=== PATIENT | female | born 1995 | race Caucasian/White ===

== ENCOUNTER 2018-08-22 14:30 | Emergency (ER) | payer MEDICAID, SELFPAY ==
[2018-08-22 14:31] VITALS: BP 126/76; PULSE 102; RESP 19; TEMP 36.1; O2SAT 99; BMI 26.6
--- NOTE | 2018-08-22 15:01 | US_ITS ---
STUDY: FIRST TRIMESTER OBSTETRICAL ULTRASOUND REASON FOR EXAM: Female, 22 years old. Cramping. Discharge. LMP: 3-19 TECHNIQUE: Transabdominal and Transvaginal PRIOR ULTRASOUND: None. FINDINGS: There is visualization of a single gestational sac in a normal intrauterine position. There is a visualized yolk sac. There is visualization of a live embryo. The crown-rump length (CRL) measures 2.49 cm, indicating an estimated gestational age (EGA) of 9 weeks, 2 days. There is demonstrated cardiac activity with a heart rate of 176 bpm. The uterus measures 9.8 x 8.6 x 5.7 cm. There is no demonstrated uterine fibroid. The cervix is closed. The right ovary measures 2.8 x 2.2 x 1.7 cm. There is no right ovarian cyst. There is no visualized right adnexal mass or complex lesion. The left ovary measures 2.9 x 1.9 x 1.8 cm. There is no left ovarian cyst. There is no visualized left adnexal mass or complex lesion. There is no fluid in the cul de sac. US/Transvaginal w/Preg US IMPRESSION: Single live intrauterine gestation, as described above. Electronically Signed: Jerod Walsh, at 18:20 EDT Tel , Service support ,
--- NOTE | 2018-08-22 15:03 | ED.VISSUMM ---
- ER Visit Summary Date of Service: 08/22/18 Chief Complaint: Pain History of Present Illness: The patient is a 22 F with suprapubic pain, gradually worsening over the past 3 days. The patient is 10 weeks and 3 days with her second . She has not had an ultrasound so far. Her pain has been associated with some spotting but she denies any other symptoms. She does not know her blood type. Physical Examination: Afebrile and vital signs unremarkable except for a heart rate of 102. Patient appears nontoxic and in no acute distress. Suprapubic area is tender to palpation. No guarding or rebound. Otherwise exam is unremarkable. Pelvic exam was deferred. Test Results: Labs, urine, blood type, ultrasound pending. Emergency Department Course and Treatment: Patient has not had any evaluation for this so far. She is having pain and spotting. Will check ultrasound, labs, urine. Will reassess. CBC and BMP unremarkable. Urinalysis normal. hCG 46,000. Blood type O+. Ultrasound showed a live intrauterine . Patient may use Tylenol for pain. Stay hydrated. Follow-up with her FELL CUTTER. Return for anything new or worsening. Treatment Plan: As above Disposition: Discharge Impression: 1. This note was generated with [employer] dictation software. It may contain incorrect words, spelling, and punctuation that were not noted in review of the chart prior to signing ED Disposition - Plan for ED Patient: Referrals: NOT,DEFINED [NON-STAFF] -
[2018-08-22 15:49] LABS: Absolute Lymphocyte Count 1.98 X10^3/ul (0.83-4.51); Absolute Neutrophil Count 3.9 X10^3/uL (2.0-7.7); Basophil# 0.01 X10^3/uL; Basophil% 0.2 % (0-1); Eosinophil# 0.08 X10^3/uL; Eosinophils% 1.2 % (0-5); Hematocrit 37.2 % (37-47); Hemoglobin 13.1 g/dl (12.0-15.0); Lymphocyte # 1.98 X10^3/ul (4.0); Lymphocyte % 30.8 % (19-41); Mean Corp Hgb Conc 35.2 g/gl (32-36); Mean Corpuscular Hgb 30.4 pg (27.0-32.0); Mean Corpuscular Volume 86.3 fL (81-99); Mean Platelet Vol. 10.9 fl (6.2-12.0); Monocyte% 7.8 % (0-10); Neutrophil # 3.86 X10^3/uL (2.7-7.7); Platelet Count 151 K/mm3 (150-450); RBC Distribution Width CV 12.9 % (11.6-14.6); RBC Distribution Width SD 41.2 fl (35.1-43.9); Red Blood Count 4.31 M/mm3 (4.2-5.4); White Blood Count 6.4 K/mm3 (4.4-11.0)
[2018-08-22 15:53] LABS: POSITIVE COUNT NO; POSITIVE DIFFERENTIAL NO; POSITIVE MORPHOLOGY NO
[2018-08-22 15:57] LABS: Anion Gap 6 (5-15); BUN 6 mg/dL (7-18); BUN/Creat Ratio 10.8 RATIO (10-20); Calcium,Total 8.5 mg/dL (8.5-10.1); Chloride 110 mmol/L (98-107); Creatinine, Serum 0.56 mg/dL (0.55-1.02); EST Glomerular Filtration Rate 146 mL/min (>60); Est Glom Filt Rate - Afr Amer 176 mL/min (>60); Estimated Creatinine Clearance 137.22 ml/min; Glucose 86 mg/dL (74-106); Potassium 3.7 mmol/L (3.5-5.1); Sodium Level 137 mmol/L (136-145)
[2018-08-22 15:59] LABS: Bacteria 0 SEEN /hpf (None Seen)
[2018-08-22 16:00] LABS: Color, Urine Yellow (Yellow); Glucose, Dipstick Normal (Normal); Ketone-Dipstick Negative (Negative); Leukocyte Esterase-Dipstick Negative /ul (Negative); Nitrite-Dipstick Negative (Negative); Occult Blood-Urine Negative /ul (Negative); Protein-Dipstick 15 mg/dl (Negative); Specific Gravity, Urine 1.015 (1.002-1.030); Urine Bilirubin Dipstick Negative (Negative); Urine Clarity Sl. Cloudy (Clear); Urine Urobilinogen 1 mg/dl (Normal); Urine pH 6.5 (5.0 - 8.0)
[2018-08-22 16:39] VITALS: BP 111/52; PULSE 63; RESP 16; O2SAT 98
[2018-08-22 16:41] LABS: Squamous Epithelial Cells - UA 0-5 SEEN /hpf (5-10)
[2018-08-22 16:42] LABS: Mucous, Urine 1+ /hpf (<or=2+)
[2018-08-22 16:43] LABS: White Blood Cells 0-5 SEEN /hpf (0-5)
[2018-08-22 16:44] LABS: Red Blood Cells-Urine 0-5 SEEN /hpf (0-5)
--- NOTE | 2018-08-22 18:46 | ED.DEP ---
ED Disposition - Plan for ED Patient: Instructions: ED Miscarriage Poss Referrals: Kayy Deleon MD [STAFF PHYSICIAN] -
[2018-08-22 18:56] VITALS: BP 105/59; PULSE 66; RESP 16; O2SAT 99
== END 2018-08-22 18:58 | disposition home or self-care (01) ==
LOC: ED 15:16
PROVIDERS: Emergency Provider Emergency Medicine
DX: O26.891 Other specified pregnancy related conditions, first trimester (principal); R10.30 Lower abdominal pain, unspecified; O99.331 Smoking (tobacco) complicating pregnancy, first trimester; Z3A.10 10 weeks gestation of pregnancy
CPT/HCPCS: 76817; 80048; 81001; 84702; 85025; 86900; 86901; 99284; A4216

== ENCOUNTER → 2018-09-05 | Outpatient (CLI) | payer MEDICAID, SELFPAY ==
[2018-09-05 14:41] VITALS: BMI 26.6
== END | disposition home or self-care (01) ==
LOC: PAVLAB 14:44
PROVIDERS: Visit Provider Nurse Practitioner Women's Health
DX: Z34.81 Encounter for supervision of other normal pregnancy, first trimester (principal); Z31.430 Encounter of female for testing for genetic disease carrier status for procreative management
CPT/HCPCS: 36415

== ENCOUNTER → 2018-10-31 11:15 | Outpatient (CLI) | payer MEDICAID, SELFPAY ==
[2018-10-31 11:10] VITALS: BMI 26.6
== END ==
PROVIDERS: Referring Provider Obstetrics & Gynecology; Visit Provider Obstetrics & Gynecology
DX: Z36.9 Encounter for antenatal screening, unspecified (principal); Z34.80 Encounter for supervision of other normal pregnancy, unspecified trimester
CPT/HCPCS: 36415; 87086; 87088

== ENCOUNTER → 2018-10-31 13:27 | Outpatient (CLI) | payer MEDICAID, SELFPAY ==
[2018-10-31 11:10] VITALS: BMI 26.6
== END ==
PROVIDERS: Referring Provider Obstetrics & Gynecology; Visit Provider Obstetrics & Gynecology
DX: Z34.90 Encounter for supervision of normal pregnancy, unspecified, unspecified trimester (principal)
CPT/HCPCS: 87086

== ENCOUNTER → 2018-12-27 | Outpatient (CLI) | payer MEDICAID, SELFPAY ==
[2018-12-27 11:33] VITALS: BMI 26.6
[2018-12-27 13:41] LABS: Absolute Neutrophil Count 6.4 X10^3/uL (2.0-7.7); Basophil# 0.02 X10^3/uL; Basophil% 0.2 % (0-1); Eosinophil# 0.06 X10^3/uL; Eosinophils% 0.7 % (0-5); Hematocrit 32.8 % (37-47); Hemoglobin 10.9 g/dL (12.0-15.0); Lymphocyte % 19.5 % (19-41); Mean Corp Hgb Conc 33.2 g/dL (32-36); Mean Corpuscular Hgb 31.1 pg (27.0-32.0); Mean Corpuscular Volume 93.7 fL (81-99); Mean Platelet Vol. 11.6 fl (6.2-12.0); Monocyte# 0.49 X10^3/uL; Monocyte% 5.6 % (0-10); NRBC Flagged by Analyzer 0 % (0-5); Neutrophil # 6.38 X10^3/uL (2.7-7.7); Neutrophil % 73.3 % (47-70); Platelet Count 166 K/mm3 (150-450); RBC Distribution Width CV 12.8 % (11.6-14.6); White Blood Count 8.7 K/mm3 (4.4-11.0)
[2018-12-27 14:04] LABS: Glucose Challenge Gest 1H 50g 112 mg/dL (70-140)
== END | disposition home or self-care (01) ==
LOC: LAB 11:58
PROVIDERS: Referring Provider Nurse Practitioner Women's Health; Visit Provider Nurse Practitioner Women's Health
DX: Z34.80 Encounter for supervision of other normal pregnancy, unspecified trimester (principal)
CPT/HCPCS: 36415; 82950; 85025

== ENCOUNTER 2019-01-22 15:41 | Outpatient (CLI) | payer MEDICAID, SELFPAY ==
[2019-01-10 11:10] VITALS: BMI 26.6
[2019-01-22 15:53] VITALS: BMI 28.1
[2019-01-22 16:49] LABS: ROM Internal Control Test YES-OK TO RESULT pt. (Internal QC); ROM Patient Test Negative (Negative); Record Kit Lot#, ROM+ J8255
--- NOTE | 2019-01-31 21:40 | OB.TRI.PN ---
Progress Notes Date of Service: 01/22/19 Progress Note: Patient presents for triage evaluation secondary to cramping FHT: 140s no regular ctx Assessment and plan: abdominal cramping, reassuring maternal and status patient discharged to home to follow-up as Toby problem list details for additional plan information. Laboratory Studies: Laboratory Tests 01/22/19 Range/Units 16:15 Vag Amniotic Fld Detect Negative (Negative) - Problem List (1) False labor Status: Acute Code Visit 52xxx-59xxx: 10804-50 non-stress test Interp
== END 2019-01-22 17:45 | disposition home or self-care (01) ==
LOC: WPOUT 15:43 → WP 15:43
PROVIDERS: Referring Provider Obstetrics & Gynecology; Visit Provider Obstetrics & Gynecology
DX: O47.9 False labor, unspecified (principal); Z3A.00 Weeks of gestation of pregnancy not specified
CPT/HCPCS: 59025; 59050; 84112; 99218; G0378

== ENCOUNTER 2019-02-09 11:18 | Outpatient (CLI) | payer MEDICAID, SELFPAY ==
[2019-02-09 10:39] VITALS: BMI 28.1
[2019-02-09 11:36] VITALS: BMI 28.3
--- NOTE | 2019-02-09 11:43 | US_ITS ---
STUDY: SECOND AND THIRD TRIMESTER OBSTETRICAL ULTRASOUND REASON FOR EXAM: Female, 23 years old . Growth. 4 chamber view. LMP: June 10, 2018. TECHNIQUE: Transabdominal TECHNICAL QUALITY: Adequate. PRIOR ULTRASOUND: August 22, 2018. FINDINGS: There is a single intrauterine fetus. The fetus is in a cephalic presentation. There is demonstrated cardiac activity with a heart rate of 146 bpm. There is a normal amniotic fluid volume. The largest amniotic fluid pocket measures 5.27 cm. The amniotic fluid index (GABRIEL) is 16.1 cm. The placenta is anterior in location and is not low lying. There are Grade 1 placental changes. The cervix measures 3.9 cm in length. The adnexal regions are not visualized. BIOMETRY: BPD: 8.26 cm: 33 weeks, 2 days HC: 30.98 cm: 34 weeks, 5 days AC: 30.46 cm: 34 weeks, 3 days FL: 6.41 cm: 33 weeks, 1 days CI: 81 FL/BPD: 78 FL/HC: FL/AC: 21 HC/AC: 1.02 age by current US: 34 weeks, 0 days. ANN by current US: March 23, 2019. Estimated weight: 2315 grams, +/- 33 grams, 46 %. age by prior US: 33 weeks, 5 days. ANN by prior US: March 25, 2019. Age by LMP: 34 weeks, 6 days. ANN by LMP: March 17, 2019. ANATOMY: Chest: Normal 4-chamber heart. The remainder of the visualized anatomy appears grossly normal.. US/OB Limited With Biometrics IMPRESSION: 1. Live single intrauterine at 34 weeks, 0 days. ANN is March 23, 2019. There is adequate interval growth since prior ultrasound. 2. EFW of 2315 g. 3. GABRIEL of 16.1 cm. 4. Anterior grade 1 placenta. 5. Vertex presentation. 6. Normal for chamber view of the heart. Electronically Signed: Larry Baca DO at 22:51 EDT Tel [phone], Service support ,
--- NOTE | 2019-02-12 22:32 | OB.TRI.PN_ITS ---
Progress Notes Date of Service: 02/09/19 Progress Note: threatened ptl FHT: 150 Moderate variability reactive no decelerations category I tracing [place]: irregular Contractions a/p threatened PTL dc home labor precautions no cervical change reactive nst Multi Select Codes - Urinary/Genital Urinary/Genital CPT Codes: 81115-91 non-stress test Interp
== END 2019-02-09 17:20 | disposition home or self-care (01) ==
LOC: WPOUT 11:24 → OBT 11:25
PROVIDERS: Referring Provider Obstetrics & Gynecology; Visit Provider Obstetrics & Gynecology
DX: O60.00 Preterm labor without delivery, unspecified trimester (principal); Z3A.00 Weeks of gestation of pregnancy not specified
CPT/HCPCS: 59050; 76816; 99218; G0378

== ENCOUNTER 2019-02-25 16:50 | Outpatient (CLI) | payer MEDICAID, SELFPAY ==
[2019-02-22 11:04] VITALS: BMI 28.3
[2019-02-25 17:18] VITALS: BMI 28.8
[2019-02-25] MEDS: Acetaminophen 500 MG Tablet 1000 MG PO (17:34)
[2019-02-25] MEDS: proMETHazine 25 MG Tablet 12.5 MG PO (17:34)
[2019-02-25 17:41] LABS: ROM Internal Control Test YES-OK TO RESULT pt. (Internal QC); ROM Patient Test Negative (Negative)
[2019-02-25] MEDS: Ondansetron 4 MG/2 ML Vial IV (18:33)
[2019-02-25] MEDS: Dextrose 5%-Lactated Ringers 1,000 ML 999 ML IV (18:33)
[2019-02-25 20:10] LABS: Protein:Creat Ratio 186 mg/g CRE (0-200)
[2019-02-25 20:32] VITALS: RESP 18
--- NOTE | 2019-02-26 04:00 | OB.TRI.PN_ITS ---
Progress Notes Date of Service: 02/25/19 Progress Note: Patient presents for triage evaluation secondary to nausea vomiting headache and visual changes likely secondary to viral gastroenteritis normal blood pressures FHT: 130-140n Moderate variability reactive no decelerations category I tracing [place]: no regular] Contractions Assessment and plan: Nausea vomiting reactive NST, reassuring maternal and status patient discharged to home to follow-up as scheduled. See problem list details for additional plan information. Laboratory Studies: Laboratory Tests 02/25/19 02/25/19 Range/Units 19:30 17:10 U Random Total Protein 55.0 H (<11.9) mg/dL Urine Creatinine 295.00 (NO RANGE EST.) mg/dL Protein/Creatinin Ratio 186 (0-200) mg/g CRE Vag Amniotic Fld Detect Negative (Negative) Code Visit 52xxx-59xxx: 64541-08 non-stress test Interp
== END 2019-02-25 20:32 | disposition home or self-care (01) ==
LOC: WPOUT 16:57 → WP 17:03
PROVIDERS: Referring Provider Obstetrics & Gynecology; Visit Provider Obstetrics & Gynecology
DX: O21.9 Vomiting of pregnancy, unspecified (principal); Z3A.00 Weeks of gestation of pregnancy not specified
CPT/HCPCS: 96361; 96374; 59025; 59050; 82570; 84112; 84156; 99218; G0378; J2405

== ENCOUNTER → 2019-03-01 13:13 | Outpatient (CLI) | payer MEDICAID, SELFPAY ==
[2019-03-01 11:14] VITALS: BMI 28.8
== END ==
PROVIDERS: Referring Provider Obstetrics & Gynecology; Visit Provider Obstetrics & Gynecology
DX: Z34.80 Encounter for supervision of other normal pregnancy, unspecified trimester (principal)
CPT/HCPCS: 87081

== ENCOUNTER → 2019-03-22 12:21 | Outpatient (CLI) | payer MEDICAID, SELFPAY ==
[2019-03-22 11:00] VITALS: BMI 28.8
--- NOTE | 2019-03-22 12:24 | US_ITS ---
STUDY: OBSTETRICAL ULTRASOUND - BIOPHYSICAL PROFILE REASON FOR EXAM: Female, 23 years old . Nonreactive stress test. LMP: June 17, 2018. PRIOR ULTRASOUND: Comparison is made with prior study dated February 09, 2019. TECHNIQUE: Transabdominal TECHNICAL QUALITY: Adequate. FINDINGS: There is a single intrauterine fetus. The fetus is in a cephalic presentation. There is demonstrated cardiac activity with a heart rate of 144 bpm. There is a normal amniotic fluid volume. The largest amniotic fluid pocket measures 4.0 cm. The amniotic fluid index (GABRIEL) is 11.2 cm. The placenta is anterior in location and is not low lying. There are Grade 2 placental changes. Age by LMP: 39 weeks, 5 days. ANN by LMP: March 24, 2019. age by prior US: 39 weeks, 4 days. ANN by prior US: March 23, 2019. BIOPHYSICAL PROFILE: Breathing Movements (FBM): 2 Gross Body Movements (GBM): 2 Tone (FT): 2 Amniotic Fluid Volume (AFV): 2 TOTAL SCORE: US/Biophysical Profile IMPRESSION: Normal biophysical profile of 11/16. Electronically Signed: Greg Arevalo, at 14:10 EST , Service support ,
== END ==
PROVIDERS: Referring Provider Obstetrics & Gynecology; Visit Provider Obstetrics & Gynecology
DX: O28.8 Other abnormal findings on antenatal screening of mother (principal); Z3A.00 Weeks of gestation of pregnancy not specified
CPT/HCPCS: 76818

== ENCOUNTER 2019-03-24 16:25 | Outpatient (CLI) | payer MEDICAID, SELFPAY ==
[2019-03-22 11:00] VITALS: BMI 28.8
[2019-03-24 16:45] VITALS: BMI 29.0
[2019-03-24] MEDS: Acetaminophen 500 MG Tablet 1000 MG PO (17:21)
--- NOTE | 2019-03-25 04:21 | OB.TRI.PN ---
Progress Notes Date of Service: 03/24/19 Progress Note: Patient presents for triage evaluation secondary to labor symptoms and decreased movement FHT: 150 moderate variability reactive no decelerations category I tracing [place]: Irregular contractions Assessment and plan: False labor and decreased movement reactive NST, reassuring maternal and status patient discharged to home to follow-up for induction of labor Tuesday. See problem list details for additional plan information. - Problem List (1) Decreased movement Status: Acute (2) False labor Status: Acute Multi Select Codes - Urinary/Genital Urinary/Genital CPT Codes: 41426-28 non-stress test Interp
== END 2019-03-24 17:25 | disposition home or self-care (01) ==
LOC: WPOUT 16:43 → WP 16:44
PROVIDERS: Visit Provider Obstetrics & Gynecology
DX: O36.8190 Decreased fetal movements, unspecified trimester, not applicable or unspecified (principal); O47.9 False labor, unspecified; Z3A.00 Weeks of gestation of pregnancy not specified
CPT/HCPCS: 59025; 59050; 99218; G0378

== ENCOUNTER 2019-03-26 06:58 | Inpatient (IN) | payer MEDICAID, SELFPAY ==
[2019-03-22 11:00] VITALS: BMI 28.8
[2019-03-26] MEDS: Lactated Ringers 1,000 ML 50 ML IV (07:30)
[2019-03-26 07:50] VITALS: BMI 29.0
[2019-03-26 07:59] LABS: Absolute Lymphocyte Count 1.09 X10^3/uL (0.83-4.51); Absolute Neutrophil Count 5.5 X10^3/uL (2.0-7.7); Basophil# 0.02 X10^3/uL; Basophil% 0.3 % (0-1); Eosinophil# 0.01 X10^3/uL; Eosinophils% 0.1 % (0-5); Hematocrit 29.3 % (37-47); Hemoglobin 9.4 g/dL (12.0-15.0); Lymphocyte # 1.09 X10^3/ul (4.0); Lymphocyte % 14.8 % (19-41); Mean Corp Hgb Conc 32.1 g/dL (32-36); Mean Corpuscular Hgb 28.2 pg (27.0-32.0); Monocyte# 0.65 X10^3/uL; Monocyte% 8.8 % (0-10); NRBC Flagged by Analyzer 0.8 % (0-5); Neutrophil # 5.49 X10^3/uL (2.7-7.7); Neutrophil % 74.5 % (47-70); Platelet Count 270 K/mm3 (150-450); RBC Distribution Width CV 14.7 % (11.6-14.6); RBC Distribution Width SD 47.1 fl (35.1-43.9); Red Blood Count 3.33 M/mm3 (4.2-5.4); White Blood Count 7.4 K/mm3 (4.4-11.0)
[2019-03-26] MEDS: Oxytocin 30 units/NS 500 ml 30 UNITS/500 ML IV.SOLN IV (08:05)
--- NOTE | 2019-03-26 08:13 | HP.PCM_ITS ---
- Problem List (1) Encounter for induction of labor Status: Acute (2) Anemia affecting Status: Acute Qualifiers: Comment: Start iron (3) Contraception management Status: Acute Qualifiers: Comment: Wants depoprovera post delivery, used before (4) Decreased movement Status: Acute (5) False labor Status: Acute (6) arrhythmia affecting , antepartum Status: Acute Comment: eval on l and d and growth us (7) Status: Acute Qualifiers: Comment: Panorama- low risk and horizon done: Negative 4 out of 4. afp neg. anatomy US normal (8) Social discord Status: Acute Comment: Does not want step aleyda Esposito in [place] (9) Supervision of other normal Status: Acute Comment: PRR ANN 03/24/19girl Nory Stapleton boyfrienchaya Stevenson JONI [address] Porter History and Physical Date of Admission: 03/26/19 Intake Vital Signs 03/22/19 Body Mass Index (BMI) 28.8 03/22/19 Height 5 ft 4 in 03/22/19 Weight: 172 lb 4 oz 03/22/19 Body Mass Index (BMI) 29.5 03/22/19 Blood Pressure 108/69 Intake Visit Reasons: 40 WEEK OB Pearl Stringer Required: No Is patient in pain?: No Allergies No Known Allergies Allergy (Verified 03/22/19 10:57) Medications Ranitidine HCl acid Spiritual Minister 150 mg PO BID 01/22/19 history Confirmed 03/22/19 Last Menstral Period: 06/10/18 Zika: Zika virus screening: Negative : No PFSH PFSH Surgical History S/P cholecystectomy (Resolved) Family History Mother Hypertension Social History Smoking Status: Current every day smoker alcohol intake: never substance use type: does not use caffeine: Yes what type of physical activity do you participate in: none seatbelt use: always do you feel safe at home: Yes additional social history: Zkdaikqja-Hopo-Jvrrgrba Contruction Patient is unemployed Pregancy History 2 Elective abortions Hx Para 1 Spontaneous abortions Hx # Term Pregnancies Ectopic pregnancies Hx # Pregnancies Multiple births # of living children 1 Past Pregnancies Del. Date Name GA/Weeks Outcome Route Bth Weight Gen Labor Lgth Anesthesia Del Locatn Provider FOB 10/18/17 Daya 39 live - full term 7lbs 3oz Female 9 hours epidural Jenniffer Graham Delivery Date: 10/18/17 On 09/05/18 @ 14:20 Rubina Hermosillo No issues during or delivery. HPI 40 WEEK OB: Details: SORAYA SHEPPARD is a 23 year old who presents for IOL secondary to decreased movment, term. OB Visit ANN Calculator Estimated Delivery Date Method Current WG Current Estimate 03/24/19 Ultrasound #1 39w 5d Other Estimates 03/17/19 LMP (Uncertain) 40w 5d Expected Delivery Route/Plan Labor Preferences- discussed possible routes of delivery and associated risks: special requests: labor support person: Graham pain management: epidural cut cord/dad catch: yes : yes PP control planned: depo Specific Issue/Plans flu vaccine: no tdap vaccine: given rhogam: na LARC form signed: declines movement and labor precautions reviewed. Problem list reviewed and updated with the most current plan of care details and appropriate orders placed. Relevant counseling for the gestational age provided. Continue routine care and follow up unless otherwise noted in visit notes/problem list details Initial Weight: Not Recorded Date EGA Weight BP Urine Prot Glucose FHR FuHt Pres Mov CTX Dilation Effaced St Visit Note 09/05/18 11w 3d 152 lb 6 oz 110/58 Negative Negative 168 NO VB, LOF. Nausea improved with phenergan. JONI Dr. Porter/Irma 10/02/18 15w 2d 151 lb 8 oz 124/74 Negative Negative 150 no vb cramping 10/31/18 19w 3d 151 lb 120/82 140 no vb has afp screen today needs us 11/28/18 23w 3d 155 lb 2 oz 116/60 Negative Negative 156 23 Active Doing well. No VB, LOF. 12/27/18 27w 4d 157 lb 2 oz 116/78 Negative Negative 154 27 Active absent No VB, LOF 01/10/19 29w 4d 160 lb 116/70 Negative Negative 140 30 no vb lof good fm no reg ctx 01/25/19 31w 5d 162 lb 124/70 Negative Negative 147 31 NO VB, LOF. Good FM. 02/09/19 33w 6d 165 lb 2 oz 110/68 145 no vb lof good fm no reg ctx. heart arrhythmia heard and recommend eval on l and d 02/14/19 34w 4d 167 lb 128/60 Negative Negative 140 35 no vb lof good fm no reg ctx 03/01/19 36w 5d 169 lb 124/60 Negative Negative 140 36 Cephalic no vb lof good fm no regular ctx 03/07/19 37w 4d 169 lb 106/58 Negative Negative 135 37 no vb lof good fm no reg ctx 03/15/19 38w 5d 167 lb 99/63 135 39 Cephalic no vb lof good fm irregular ctx Visit Notes Visit Date: 03/15/19 ??no vb lof good fm irregular ctx ??Kayy Deleon MD on 03/15/19 Visit Date: 03/07/19 ??no vb lof good fm no reg ctx ??Kayy Deleon MD on 03/07/19 Visit Date: 03/01/19 ??no vb lof good fm no regular ctx ??Kayy Deleon MD on 03/01/19 Visit Date: 02/14/19 ??no vb lof good fm no reg ctx ??Kayy Deleon MD on 02/14/19 Visit Date: 02/09/19 ??no vb lof good fm no reg ctx. heart arrhythmia heard and recommend eval on l and d ??Kayy Deleon MD on 02/09/19 Visit Date: 01/25/19 ??NO VB, LOF. Good FM. ??PETE Love on 01/25/19 Visit Date: 01/10/19 ??no vb lof good fm no reg ctx ??Kayy Deleon MD on 01/10/19 Visit Date: 12/27/18 ??No VB, LOF ??PETE Love on 12/27/18 Visit Date: 11/28/18 ??Doing well. No VB, LOF. ??PETE Love on 11/28/18 Visit Date: 10/31/18 ??no vb has afp screen today needs us ??Kayy Deleon MD on 10/31/18 Visit Date: 10/02/18 ??no vb cramping ??Kayy Deleon MD on 10/02/18 Visit Date: 09/05/18 ??NO VB, LOF. Nausea improved with phenergan. JONI Dr. Porter/Irma ??Carolin Heredia NP-C on 09/05/18 ACOG Second Trimester Second Trimester: Signs and Symptoms of Labor, Selecting a care provider and Reproductive Life Planning Third Trimester Third Trimester: Pain Management Plans, Labor support person(s), Immediate Larc, Movement Monitoring, Signs and Symptoms of Preeclampsia, Labor Signs and Infant Feeding Diagnostics Diagnostics Diagnostics Glucose 1 Hr 50 gm 112 mg/dL (70-140) 12/27/18 Hgb 10.9 g/dL (12.0-15.0) L 12/27/18 Hct 32.8 % (37-47) L 12/27/18 Details: HIV: Urine Culture: Sequential Screen: NIPT Screen: ROS: General: negative Biodiesel Operations Manager: see hpi GI: otherwise negative unless documented in hpi all other systems reviewed and negative PE: VSSAF General: alert oriented comfortable HEENT: no thyromegaly, lymphadenopathy CV: RRR Resp: nl inspiratory effort Abdn: soft gravid NTTP approrpriate GA Ext: minimal edema fht 140 cat I tracing Results [id number] Office Urine Glucose Negative Last Edit by Rubina Hermosillo on 03/22/19 11:05 Office Urine Protein Trace Last Edit by Rubina Hermosillo on 03/22/19 11:05 Assessment & Plan Problems 1. Social discord Z65.8 Does not want step aleyda Esposito in WP 2. arrhythmia affecting , antepartum O36.8390 eval on l and d and growth us 3. Encounter for other general counseling or advice on contraception Z30.09 Wants depoprovera post delivery, used before 4. Anemia affecting in second trimester O99.012 Start iron 5. 39 weeks gestation of Z3A.39 Panorama- low risk and horizon done: Negative 4 out of 4. afp neg. anatomy US normal 6. Supervision of other normal Z34.80 PRR ANN 03/24/19girl Nory tamayofriend Graham JONI [address] Porter Patient presents IOL, plan management for , pitocin/AROM . Pain management: Plans epidural. GBS negative. Management of any complications: Decreased movement, overall reassuring heart tracing and induction of labor today due to favorable cervix, 40 weeks I have reviewed the [facility] and made any clinically relevant updates. Orders Orders: POC Urinalysis 2 Dip (Clinic) Today Coding Diagnoses Social discord Z65.8 arrhythmia affecting , antepartum O36.8390 Encounter for other general counseling or advice on contraception Z30.09 ??Contraceptive encounter type: other general counseling and advice Anemia affecting in second trimester O99.012 ??Trimester: second trimester 39 weeks gestation of Z3A.39 ??Weeks of gestation: 39 weeks Supervision of other normal Z34.80 UPDATE- I have seen the patient and performed any clinically relevant updates to the history and physical exam. Kayy Deleon MD
[2019-03-26] MEDS: Lactated Ringers 500 ML 999 ML IV (08:33)
[2019-03-26] MEDS: fentaNYL-bupivacaine (epidural) 100 ML BAG EPIDURAL ×2 (09:38→13:58)
[2019-03-26] MEDS: Lactated Ringers 1,000 ML 200 ML IV (13:58)
[2019-03-26] MEDS: Acetaminophen 325 MG Tablet PO (14:27)
[2019-03-26] MEDS: Oxytocin 30 units/NS 500 ml 30 UNITS/500 ML IV.SOLN 334 UNITS IV (14:50)
--- NOTE | 2019-03-26 14:56 | OP.PCM_ITS ---
Problem List (1) Encounter for induction of labor Status: Acute (2) Anemia affecting Status: Acute Qualifiers: Comment: Start iron (3) Contraception management Status: Acute Qualifiers: Comment: Wants depoprovera post delivery, used before (4) Decreased movement Status: Acute (5) False labor Status: Acute (6) arrhythmia affecting , antepartum Status: Acute Comment: eval on l and d and growth us (7) Status: Acute Qualifiers: Comment: Panorama- low risk and horizon done: Negative 4 out of 4. afp neg. anatomy US normal (8) Social discord Status: Acute Comment: Does not want step aleyda Esposito in WP (9) Supervision of other normal Status: Acute Comment: PRR ANN 03/24/19girl Nory Stapleton boyfrienchaya Stevenson JONI [address] Porter Vaginal Delivery Maternal Presentation: Medically Indicated Induction iol 3 cm decreased movememnt Method of Induction: Pitocin Amniotic Membrane Rupture Type: Artificial Amniotic Fluid Description: Moderate meconium Final ANN: 03/25/19 Gestational age: 40 Weeks and 1 Days Date of Procedure: 03/26/19 Pre-Operative Diagnosis: iol dec fm Post-Operative Diagnosis: same Surgery/ Procedure Performed: Spontaneous Vaginal Delivery Type of Anesthesia: Epidural Description of Procedure: Patient began pushing and delivered the head in the ALESSIA presentation. The head was delivered atraumatically. The anterior and posterior shoulders delivered without complication followed by the rest of the and the was placed on the maternal abdomen. Delayed cord clamping was employed for approximately 60 seconds. Cord was clamped and cut and gentle traction was applied to the cord and the placenta delivered spontaneously immediately following it was noted to be intact with three-vessel cord. The perineum and vagina were inspected and noted to have no laceration. EBL was 200 cc. Patient and infant tolerated delivery well. Presentation: ALESSIA Placental Delivery Description: Spontaneous Placenta Disposition: [facility] Cord Vessel Description: 3 Vessels Cord Entanglement: None Estimated Blood Loss: 200 Infant A gender: Female Episiotomy Description: None Laceration: None Medications given after delivery: IV Pitocin Complications: None Multi Select Codes - Urinary/Genital Urinary/Genital CPT Codes: 71668 Vaginal Delivery+ Care([facility])
[2019-03-26] MEDS: Naproxen 250 MG Tablet 500 MG PO (19:12)
[2019-03-26 20:18] VITALS: BP 101/55; PULSE 100; RESP 18; TEMP 37
[2019-03-27 00:15] VITALS: BP 103/44; PULSE 87; RESP 18; TEMP 37.1
[2019-03-27] MEDS: Acetaminophen 500 MG Tablet 1000 MG PO (04:02)
[2019-03-27] MEDS: Senna/Docusate Sodium 1 Tablet PO (04:03)
[2019-03-27 04:05] VITALS: BP 99/48; PULSE 84; RESP 18; TEMP 36.6
--- NOTE | 2019-03-27 08:18 | PCM.PN.OB ---
Patient Problems: Active and Suspected Problems (Last Reviewed 03/22/19 @ 10:57 by Rubina Hermosillo) Encounter for induction of labor (Acute) Subjective: doing well no complaints pain controlled no CP SOB N V ambulating well tolerating po lochia moderate, going well - Physical Exam Vitals/I&O's: Vital Signs Temp Pulse Resp BP 97.8 F 84 18 99/48 L 03/27/19 04:05 03/27/19 04:05 03/27/19 04:05 03/27/19 04:05 Oxygen Delivery Method Room Air Weight: 169 lb Body Mass Index (BMI) 29.0 Intake and Output for Last 24 Hours 03/25/19 03/26/19 03/27/19 23:59 23:59 23:59 Intake Total 2141.82 / 2141.82 Output Total 750 / 750 Balance 1391.82 / 1391.82 General: Alert, Oriented x3 Abdomen: Soft, Non Tender, - - FF below U Laboratory Results 03/26/19 07:30: Blood Type O POSITIVE, Antibody Screen NEGATIVE Current Medications Acetaminophen (Tylenol) 1,000 mg PO Q8H PRN PRN PRN Reason: Pain Score 1-3/10 Last Admin: 03/27/19 04:02 Dose: 1,000 mg Documented by: Bisacodyl (Dulcolax) 10 mg RECTAL UD PRN PRN Reason: If no BM Dibucaine (Dibucaine) 1 applic TOPICAL TID PRN PRN; Protocol PRN Reason: Discomfort Hydrocortisone (Hytone) 1 applic TOPICAL TID PRN PRN; Protocol PRN Reason: Discomfort Methylergonovine Maleate (Methergine) 0.2 mg IM X1 PRN PRN Reason: Excess bleeding/uterine atony Naproxen (Naprosyn) 500 mg PO Q8H PRN PRN PRN Reason: Pain Score 1-3/10 Last Admin: 03/26/19 19:12 Dose: 500 mg Documented by: Ondansetron HCl (Zofran) 4 mg IV Q4H PRN PRN PRN Reason: Nausea Oxycodone HCl (Oxyir) 5 - 10 mg PO Q4H PRN PRN PRN Reason: Pain Score 4-10/10 Senna/Docusate Sodium (Senokot-S, Jocelyne-Colace) 1 - 2 tablet PO DAILY PRN PRN PRN Reason: Constipation Last Admin: 03/27/19 04:03 Dose: 2 tablet Documented by: Simethicone (Mylicon) 80 mg PO PCHS PRN PRN Reason: Indigestion/Stomach pain Sodium Chloride () 5 - 15 ml IV UD PRN PRN Reason: SALINE FLUSH Medical Necessity - Tobacco Use Smoking Status: Light Smoker (<10/day) Assessment/Plan All Active Problems (Last Reviewed 03/22/19 @ 10:57 by Rubina Hermosillo) Decreased movement (Acute) False labor (Acute) Encounter for induction of labor (Acute) Social discord (Acute) arrhythmia affecting , antepartum (Acute) Contraception management (Acute) Anemia affecting (Acute) (Acute) Supervision of other normal (Acute) False labor (Resolved) s/p PPD # 1 1. routine post delivery care 2. breast feeding- support given 3. rh positive 4. rubella immune 5. Wants depoprovera injection before discharge 6. home today
--- NOTE | 2019-03-27 08:19 | DCINST_ITS ---
Additional Instructions: If you experience any of the following, contact your healthcare provider. * Bleeding that soaks a pad every hour for 2 hours * Fever 100.4 or higher * Unrelieved incision or abdominal pain * Swelling, redness, discharge or bleeding from your incision or episiotomy site * Your incision begins to separate * Problems urinating (including inability to urinate or burning while urinating). * Visual changes * Severe headache * Flu-like symptoms * Pain or redness in one of both of your breasts * Pain, warmth, tenderness or swelling in your legs, especially the calf area * Frequent nausea and vomiting * Symptoms of depression or anxiety If you experience any of the following, call 911 or go to the nearest Emergency Room. * Chest pain * Problems breathing * Seizure activity * Partial or complete paralysis of a body part, slurred speech, weakness or drooping of the face, or a sudden inability to walk or hold your balance Allergies/Adverse Reactions: Allergies No Known Allergies Allergy (Verified 03/26/19 07:51) Medications to take at Discharge Ranitidine HCl [Acid Crib Pad Maker] 150 mg PO BID 01/22/19 Primary Care Physician: Care Physician,No Primary [Primary Care Provider] - Test Results: Test results from this visit will be discussed in further detail at your follow- up appointment, if applicable.
--- NOTE | 2019-03-27 08:19 | PCM.DCVAG ---
Additional Instructions: If you experience any of the following, contact your healthcare provider. Bleeding that soaks a pad every hour for 2 hours Fever 100.4 or higher Unrelieved incision or abdominal pain Swelling, redness, discharge or bleeding from your incision or episiotomy site Your incision begins to separate Problems urinating (including inability to urinate or burning while urinating). Visual changes Severe headache Flu-like symptoms Pain or redness in one of both of your breasts Pain, warmth, tenderness or swelling in your legs, especially the calf area Frequent nausea and vomiting Symptoms of depression or anxiety If you experience any of the following, call 911 or go to the nearest Emergency Room. Chest pain Problems breathing Seizure activity Partial or complete paralysis of a body part, slurred speech, weakness or drooping of the face, or a sudden inability to walk or hold your balance Allergies/Adverse Reactions: Allergies No Known Allergies Allergy (Verified 03/26/19 07:51) Medications to take at Discharge Ranitidine HCl [Acid Machine Deicer Element Winder] 150 mg PO BID 01/22/19 Primary Care Physician: Care Physician,No Primary [Primary Care Provider] - Test Results: Test results from this visit will be discussed in further detail at your follow-up appointment, if applicable.
[2019-03-27 08:45] VITALS: BP 103/53; PULSE 69; RESP 16; TEMP 36.3
[2019-03-27] MEDS: Naproxen 250 MG Tablet 500 MG PO (09:01)
[2019-03-27] MEDS: MedroxyPROGESTERone 150 MG/ML Syringe IM (10:32)
[2019-03-27 12:10] VITALS: BP 97/43; PULSE 60; RESP 14; TEMP 36.5
--- NOTE | 2019-03-27 12:10 | NURSING ---
pt. denies symptoms of dizziness/ feeling light headed
[2019-03-27 16:44] VITALS: BP 104/54; PULSE 80; RESP 18; TEMP 36.3
--- NOTE | 2019-03-27 18:15 | NURSING ---
baby's bilirubin elevated in high risk zone, parents unable to schedule appt. for tomorrow with dye colorist formulator, appt. scheduled with for tomorrow 03/28/19 at 1130 to follow up with bilirubin level
== END 2019-03-27 17:42 | disposition home or self-care (01) | DRG 560 ==
PROVIDERS: Admitting Provider Obstetrics & Gynecology; Referring Provider Obstetrics & Gynecology; Visit Provider Obstetrics & Gynecology
DX: O36.8130 Decreased fetal movements, third trimester, not applicable or unspecified (principal); O99.02 Anemia complicating childbirth; D64.9 Anemia, unspecified; O99.334 Smoking (tobacco) complicating childbirth; Z3A.40 40 weeks gestation of pregnancy; Z37.0 Single live birth; O47.9 False labor, unspecified; O36.8190 Decreased fetal movements, unspecified trimester, not applicable or unspecified
CPT/HCPCS: 59025; 59050; 85025; 86850; 86900; 86901; 99218; J7120; G0378

== ENCOUNTER → 2019-09-07 | Outpatient (CLI) | payer MEDICAID, SELFPAY ==
[2019-09-07 15:48] VITALS: BMI 29.0
[2019-09-07 17:10] LABS: Absolute Lymphocyte Count 3.09 X10^3/uL (0.83-4.51); Absolute Neutrophil Count 3.9 X10^3/uL (2.0-7.7); Basophil# 0.03 X10^3/uL; Basophil% 0.4 % (0-1); Eosinophil# 0.12 X10^3/uL; Eosinophils% 1.6 % (0-5); Hematocrit 41.4 % (37-47); Hemoglobin 13.4 g/dL (12.0-15.0); Lymphocyte # 3.09 X10^3/ul (4.0); Lymphocyte % 40.1 % (19-41); Mean Corp Hgb Conc 32.4 g/dL (32-36); Mean Corpuscular Hgb 29.4 pg (27.0-32.0); Mean Corpuscular Volume 90.8 fL (81-99); Mean Platelet Vol. 11.2 fl (6.2-12.0); Monocyte# 0.52 X10^3/uL; Monocyte% 6.7 % (0-10); NRBC Flagged by Analyzer 0 % (0-5); Neutrophil # 3.93 X10^3/uL (2.7-7.7); Neutrophil % 50.9 % (47-70); Platelet Count 236 K/mm3 (150-450); RBC Distribution Width CV 13.4 % (11.6-14.6); RBC Distribution Width SD 44.4 fl (35.1-43.9); Red Blood Count 4.56 M/mm3 (4.2-5.4); White Blood Count 7.7 K/mm3 (4.4-11.0)
[2019-09-07 17:46] LABS: hCG Titer Quant., Serum < 1 mIU/mL (1-3)
[2019-09-07 17:52] LABS: Thyroid Stim Hormone (TSH) 1.09 uIU/mL (0.358-3.74)
== END | disposition home or self-care (01) ==
LOC: LAB 16:12
PROVIDERS: Referring Provider Obstetrics & Gynecology; Visit Provider Obstetrics & Gynecology
DX: N92.6 Irregular menstruation, unspecified (principal)
CPT/HCPCS: 36415; 84443; 84702; 85025

== ENCOUNTER 2020-07-22 05:58 | Day surgery (SDC) | payer MEDICAID, SELFPAY ==
[2020-05-29 10:36] VITALS: BMI 25.5
[2020-07-11 10:19] VITALS: BMI 24.9
[2020-07-21 17:38] LABS: Hemoglobin 13.4 g/dL (12.0-15.0); Mean Corp Hgb Conc 32.7 g/dL (32-36); Mean Corpuscular Hgb 29.5 pg (27.0-32.0); Mean Corpuscular Volume 90.3 fL (81-99); Mean Platelet Vol. 10.9 fl (6.2-12.0); Platelet Count 221 K/mm3 (150-450); RBC Distribution Width CV 13.2 % (11.6-14.6); RBC Distribution Width SD 43.5 fl (35.1-43.9); Red Blood Count 4.54 M/mm3 (4.2-5.4); White Blood Count 9.4 K/mm3 (4.4-11.0)
[2020-07-22] VITALS (7 sets, daily range): BP systolic 93–114; BP diastolic 51–89; PULSE 50–75; RESP 16–51; TEMP 36.1–36.6; O2SAT 96–100; BMI 24.8
[2020-07-22 06:26] LABS: Internal QC Validated? YES +Cl - CLEAR BKGD; Pregnancy, Urine Negative Negative
[2020-07-22] MEDS: Lactated Ringers 1,000 ML 100 ML IV (06:50)
--- NOTE | 2020-07-22 07:18 | HP.PCM_ITS ---
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 Lyric Nichols MD) Smoking Status: Light Smoker (<10/day) alcohol intake: never substance use type: does not use caffeine: Yes what type of physical activity do you participate in: none seatbelt use: always do you feel safe at home: Yes additional social history: Heuurowyf-Xmsg-Rlukvsbh Contruction Patient is unemployed HPI BS: Details: SORAYA SHEPPARD is a 24 year old who presents for laparoscopic bilateral salpingectomy. Patient denies complaints today. Reports still is 100% certain that she never wants to have another baby in the future and has no hesitation about proceeding with tubal ligation Pregancy History 2 Elective abortions Hx Para 2 Spontaneous abortions Hx # Term Pregnancies Ectopic pregnancies Hx # Pregnancies Multiple births # of living children 2 Past Pregnancies Del. Date Name GA/Weeks Outcome Route Bth Weight Infant Gen Labor Lgth Anesth esia Del Locatn Provider FOB 10/18/17 Daya 39 live - full term 7lbs 3oz Female 9 hours epidural Jenniffer Stevenson 03/26/19 Estevez live - full term Female [facility] Dr. Deleon Delivery Date: 10/18/17 No issues during or delivery. Rubina Hermosillo Delivery Date: 03/26/19 No notes to display ROS Const Constitutional: Reports system reviewed and no additional complaints, except as docu; denies chills or fever(s) Eyes Eyes: Reports system reviewed and no additional complaints, except as docu ENT ENT: Reports system reviewed and no additional complaints, except as docu Cardio Card: Reports system reviewed and no additional complaints, except as docu; denies chest pain, leg swelling or rapid, pounding, or irregular heartbeat Resp Resp: Reports system reviewed and no additional complaints, except as docu; denies dyspnea GI GI: Reports system reviewed and no additional complaints, except as docu; denies constipation, nausea or vomiting : Reports system reviewed and no additional complaints, except as docu; denies painful urination, pelvic pain, urinary frequency, urinary hesitancy, urinary urgency, vaginal discharge, vaginal odor or vaginal itching Musc Musc: Reports system reviewed and no additional complaints, except as docu Skin Skin/Breast: Reports system reviewed and no additional complaints, except as docu Neuro Neuro: Reports system reviewed and no additional complaints, except as docu Psych Psych: Reports system reviewed and no additional complaints, except as docu Endo Endo: Reports system reviewed and no additional complaints, except as docu Exam Const General: cooperative, healthy appearing, comfortable, well developed, well groomed Neck Neck: normal visual inspection, full ROM Resp Effort & Inspection: normal respiratory effort, able to speak in complete sentences, symmetric chest movement Cardio Rate: regular rate Skin General: no rashes or lesions noted, elasticity normal, turgor normal Lesions: no lesions Rashes: no rashes Neuro General: alert, awake, oriented x3 Cranial Nerves: CN's II-XI intact bilaterally, PERRL, EOM intact bilaterally Cognition: normal cognition Speech: speech normal Gait: normal gait Extrem General: normal to inspection, full ROM, no pedal edema Psych Appearance: grossly normal Mental Status: mental status grossly normal Mood: congruent mood Affect: normal affect Speech and Movement: speech and movement normal Attitude: cooperative Thought Process: normal Thought Content: normal Assessment & Plan 1. Tubal ligation evaluation Z01.818 Plan Presents for pre-op visit for laparoscopic bilateral salpingectomy Again reviewed risks and benefits of surgery. Denies questions. Reviewed post-op precautions. No changes in medical history. ROS negative. Consent signed with patient in the office today. UPDATE- I have seen the patient and performed any clinically relevant updates to the history and physical exam. Lyric Nichols MD
--- NOTE | 2020-07-22 07:21 | DCINST_ITS ---
Discharge Diet: No Restrictions, - - Increase fluid intake for 48 hours. Discharge Activity: Return to Normal Activity, May Drive - when you are no longer taking narcotic pain medications., May Shower, May Take a Tub Bath - in 7 days., - - Ambulate often the next week after surgery. Additional Activity Instructions:: Nothing in the vagina for the next 5 days. Call your doctor if your incision/area has: Continuous Slow Oozing, Sudden Increased Bleeding, Increased Pain/ Swelling, Increased Redness, Foul Smelling Discharge, Swelling at the incision site Call your doctor if you observe: Fever of 101 or Higher Allergies/Adverse Reactions: Allergies No Known Allergies Allergy (Verified 07/15/20 09:10) Medications to take at Discharge NK 07/11/20 Primary Care Physician: Care Physician,No Primary [Primary Care Provider] - Test Results: Test results from this visit will be discussed in further detail at your follow- up appointment, if applicable.
--- NOTE | 2020-07-22 07:30 | FALS_PTH ---
PATIENT: SORAYA SHEPPARD LOC: [facility] [place] U#:[id number] AGE/SX: 24/ ROOM: RE07/22/[address]: Dr. Lyric Nichols MD : 1995 BED: DIS: 07/22/2020 SPEC #: [id number] RECD: 07/22/20 10:32 STATUS: ANGELINA REMitzy #: [id number] MONCHO: 07/22/20 07:[address]: Lyric Nichols DEPT: SURGICAL PATHOLOGY RECD BY: Maru Whatley ENTERED: 07/22/20 10:46 SP TYPE: FALL TUBES OTHR DR: No Primary Care Phys Tissues: Fallopian tube Procedures: Surgery Specimen Level II HEADER OPERATION: Laparoscopic salpingectomy PRE-OP DIAGNOSIS: Tubal ligation evaluation TISSUE SUBMITTED: Bilateral fallopian tubes MICROSCOPIC DIAGNOSIS Bilateral fallopian tubes, salpingectomy: Bilateral fallopian tubes including fimbrial ends, no pathologic diagnosis. Bilateral paratubal cysts. ATIYA:robert 07/23/2020 MICROSCOPIC DESCRIPTION Slides are reviewed. GROSS DESCRIPTION Received in fixative is one container labeled with the patient's name and designated bilateral fallopian tubes. The specimen consists of bilateral fallopian tubes including fimbrial ends. One of the fallopian tubes measure 6.5 cm in length and 0.5 cm in diameter. A paratubal cyst is noted measuring 1 cm in greatest dimension. The second fallopian tube received in multiple pieces measure 7 cm in length and 0.5 cm in diameter. A small paratubal cyst is noted measuring 0.5 cm in greatest dimension. The fallopian tubes are not identified as right or left. Sections reveal unremarkable cut surfaces. Nursing Instructor sections are submitted in two cassettes as follows: 1 - one fallopian tube and paratubal cyst, 2 - second fallopian tube and paratubal cyst. Cassette 2 contains the fallopian tube received in multiple pieces. / ATIYA:robert 07/22/20 TC:5 CPT: 17947 x2
[2020-07-22] MEDS: Bupivacaine Mpf 0.5% 30 ML VIAL (08:06)
--- NOTE | 2020-07-22 08:24 | OP.PCM_ITS ---
Problem List (1) Encounter for tubal ligation Status: Acute Report of Operation Date of Procedure: 07/22/20 Pre-Operative Diagnosis: Multiparity, desires tubal ligation Post-Operative Diagnosis: Same Surgery/Procedure Performed:: Laparoscopic bilateral salpingectomy Description of Surgical Findings:: Normal-appearing uterus, cervix, and bilateral tubes and ovaries. physician credentialing specialist: Brigid Cheung Type of Anesthesia:: General Specimen's removed: Bilateral tubal segments Estimated Blood Loss (mL): 10ml Description of Procedure: The patient was taken to the operating room where general anesthesia was obtained without difficulty. She was prepped and draped in the dorsal lithotomy position with yellofin stirrups. A weighted speculum was placed in the posterior aspect of the vagina and the anterior lip of the cervix was grasped with a single-tooth tenaculum. The uterus was sounded and found to be 9 cm. A Zumi uterine manipulator was placed without difficulty and all other instruments were removed from the vagina. Gloves were changed and attention was directed to the abdomen. The umbilicus was grasped with towel clamps. 10cc of 0.25% marcaine was used to anesthetize the umbilicus. A 5mm incision was made at the base of the umbilicus. A veress needle was inserted without difficulty and intra-abdominal placement was confirmed using the water-drop test. The abdomen was insufflated to 15 mmHg and the veress needle was removed. A 5mm optiview trochar was then placed under direct visualization. Initial survey of the abdominal cavity revealed no evidence of trauma. The above findings were noted. Additional 5 mm ports were placed in the right and left lower quadrants. The ligasure device was used to grasp, cauterize, and transect the mesosalpinx bilaterally and the tubes were amputated and removed from the 5mm port. The area was reinspected and good hemostasis was noted. The procedure was deemed complete. All instruments were removed from the abdominal cavity. The port sites were closed in a simple interrupted fashion using 3-0 monocryl and sterile dressings were placed. The uterine manipulator was removed. The patient was awakened from anesthesia and taken to the recovery room in stable condition. - Complications None apparent - Admit VTE Documentation VTE Present on Admission: No VTE Mechan Device Prophylaxis: SCD's VTE Pharm Prophylaxis ordered?: No Multi Select Codes - Urinary/Genital Urinary/Genital CPT Codes: 59437 Laproscopic BS/O - Bilateral salpingectomy
== END 2020-07-22 10:20 | disposition home or self-care (01) ==
LOC: SDC 05:59 → AC 05:59
PROVIDERS: Anesthesiology; Referring Provider Obstetrics & Gynecology; Visit Provider Obstetrics & Gynecology
PROC: (CPT 58661; principal; 2020-07-22 07:15)
DX: Z30.2 Encounter for sterilization (principal); N83.8 Other noninflammatory disorders of ovary, fallopian tube and broad ligament; Z64.1 Problems related to multiparity; Z20.822 Contact with and (suspected) exposure to COVID-19; F17.200 Nicotine dependence, unspecified, uncomplicated
CPT/HCPCS: 00840; 58661; 36415; 81025; 85027; 86850; 86900; 86901; 87426; 88302; C9803; J7120; J2405

== ENCOUNTER 2022-07-10 23:29 | Emergency (ER) | payer MEDICAID, SELFPAY ==
[2022-07-10 23:30] VITALS: BP 126/93; PULSE 88; RESP 18; TEMP 35.9; O2SAT 100; BMI 21.9
--- NOTE | 2022-07-11 00:17 | EX.ED.DYSGE1 ---
HPI History of Present Illness Chief Complaint: Sore Throat Narrative Narrative: Patient is a 26-year-old female with no significant past medical history. She states over the last 1 to 2 days she has had sore throat with increased pain with swallowing. She denies any fevers or chills congestion drainage or cough. She states that her daughter was recently diagnosed with strep throat and she is concerned she has developed the infection as well and secondary to this comes in for evaluation PFSH PFSH Home Medications ibuprofen 800 mg tablet 800 mg PO Q8H PRN PRN Pain Score 1-5 #60 tabs 07/22/20 [Rx Last Taken Unknown] cefdinir 300 mg capsule 300 mg PO BID 7 days #14 caps 07/11/22 [Rx Last Taken Unknown] prednisone 20 mg tablet 40 mg PO DAILY 5 days #10 tabs 07/11/22 [Rx Last Taken Unknown] Allergy/AdvReac Type Severity Reaction Status Date / Time No Known Allergies Allergy Verified 07/15/20 09:10 Family History Mother Hypertension Surgical History History of bilateral salpingectomy S/P cholecystectomy Social History (Updated 07/11/20 @ 10:[address] Lyric Nichols MD) Smoking Status: Current every day smoker tobacco type: e-cigarettes alcohol intake: never substance use type: does not use caffeine: Yes what type of physical activity do you participate in: none seatbelt use: always do you feel safe at home: Yes additional social history: Wtlgpxigr-Zckp-Pflpjfyi Contruction Patient is unemployed [facility] ED Constitutional Constitutional ED: Denies chills or fever(s) ENT ENT ED: Reports sore throat; Denies ear pain or rhinorrhea Cardiovascular Cardiovascular: Denies chest pain Respiratory/Chest Respiratory/Chest: Denies cough or dyspnea Gastrointestinal Gastrointestinal: Denies abdominal pain, diarrhea, nausea or vomiting Genitourinary Genitourinary ED: Denies dysuria Musculoskeletal Musculoskeletal: Reports neck pain; Denies myalgias Integumentary Denies rash Neurologic Neurologic: Denies headache(s) Hematologic/Lymphatic Hematologic/Lymphatic: Denies easy bleeding or easy bruising EXAM Physical Exam Const Vital Signs: 07/10/22 23:30 07/10/22 23:30 07/10/22 23:52 Temperature 96.7 F L 96.7 F L Temperature Source Temporal Temporal Pulse Rate 88 88 Respiratory Rate 18 18 Respiratory Effort Normal Respiratory Pattern Normal Blood Pressure 126/93 H 126/93 H Blood Pressure Mean 104 104 Pulse Ox 100 100 Oxygen Delivery Method Room Air Room Air Positive well nourished and well developed General Appearance ED: well developed HEENT Reports moist mucous membranes HEENT Narrative: Posterior pharynx displays diffuse erythema there is slight +1 bilateral tonsil hypertrophy with faint exudates but no hard palpitate GI no trismus change in voice or difficulty with secretions Eyes PERRL and EOMs intact bilaterally Neck supple Neck Narrative: Tender anterior cervical lymphadenopathy on left Resp normal respiratory effort and clear to auscultation bilaterally Cardio regular rate and regular rhythm Extremity normal to inspection Neuro oriented x3 and CN's II-XII intact bilaterally Sensorium / Orientation: alert Psych mental status grossly normal Skin no rashes or lesions noted MDM MDM MDM Narrative Medical decision making narrative: Patient presented to the ER afebrile and in no acute respiratory distress. She had diffuse erythema with mild tonsillar perjury feet and scant exudates and reported a recent exposure to strep in her house. She is plus 3 out of 4 on the [employer] criteria and with her exposure I do not feel there is need for testing. Patient replaced on antibiotics secondary to high likelihood of strep pharyngitis as a cause of her throat pain. She does not have physical exam findings to suggest peritonsillar abscess retropharyngeal abscess or acute epiglottitis and therefore do not feel there is need for imaging or laboratory studies. The plan of care was discussed with the patient and she is agreeable to it and therefore we discharged at this time History & Record Review Discussion w/independent historian: Patient and Friend Discharge Plan Triage Chief Complaint: Sore Throat ED Provider: Santosh Leach Dx/Rx/DC Orders Clinical Impression: Pharyngitis, Lymphadenopathy Instructions: When You Have a Sore Throat, Lymphadenopathy Prescriptions: New prednisone 20 mg tablet 40 mg PO DAILY 5 Days Qty: 10 0RF cefdinir 300 mg capsule 300 mg PO BID 7 Days Qty: 14 0RF No Action ibuprofen 800 MG tablet 800 mg PO Q8H PRN PRN (Reason: Pain Score 1-5) Qty: 60 1RF Primary Care Provider: Care Physician,No Primary Referrals: Care Physician,No Primary [Primary Care Provider] - Activity Restrictions/Additional Instructions: Your exam does not show any signs of peritonsillar abscess or airway obstruction. With your physical exam and the fact your daughter has strep throat this is most likely a bacterial pharyngitis and therefore take your antibiotics as directed to help resolve your symptoms. Return to the ER should you have any further concerns Disposition Disposition: Home, Self Care Discharge Date/Time: 07/11/22 00:58
[2022-07-11] MEDS: dexAMETHasone 10 MG/ML Vial PO.IVFORM (00:31)
[2022-07-11] MEDS: Cefdinir 300 MG Capsule PO (00:31)
== END 2022-07-11 00:58 | disposition home or self-care (01) ==
PROVIDERS: Emergency Provider Emergency Medicine; Visit Provider Emergency Medicine
DX: J02.9 Acute pharyngitis, unspecified (principal); R59.9 Enlarged lymph nodes, unspecified; Z79.52 Long term (current) use of systemic steroids; F17.290 Nicotine dependence, other tobacco product, uncomplicated
CPT/HCPCS: 99284

== ENCOUNTER 2023-06-20 03:40 | Emergency (ER) | payer MEDICAID, SELFPAY ==
[2023-06-20 03:41] VITALS: BP 112/51; PULSE 83; RESP 18; TEMP 35.9; O2SAT 98; BMI 26.9
--- NOTE | 2023-06-20 03:43 | EDS_ITS ---
HPI History of Present Illness Chief Complaint: Lower Extremity Injury PFSH PFSH Home Medications ibuprofen 800 mg tablet 800 mg PO Q8H PRN PRN Pain Score 1-5 #60 tabs 07/22/20 [Rx Last Taken Unknown] cefdinir 300 mg capsule 300 mg PO BID 7 days #14 caps 07/11/22 [Rx Last Taken Unknown] prednisone 20 mg tablet 40 mg (2 x 20 mg) PO DAILY 5 days #10 tabs 07/11/22 [Rx Last Taken Unknown] Allergy/AdvReac Type Severity Reaction Status Date / Time No Known Allergies Allergy Verified 06/20/23 03:43 Family History Mother Hypertension Surgical History History of bilateral salpingectomy S/P cholecystectomy Social History (Updated 07/11/20 @ 10:[address] Lyric Nichols MD) Smoking Status: Current every day smoker tobacco type: e-cigarettes alcohol intake: never substance use type: does not use caffeine: Yes what type of physical activity do you participate in: none seatbelt use: always do you feel safe at home: Yes additional social history: Koynmlgzc-Kvsy-Ivvbblcf Contruction Patient is unemployed EXAM Physical Exam Const Vital Signs: 06/20/23 03:41 Temperature 96.6 F L Temperature Source Temporal Pulse Rate 83 Respiratory Rate 18 Blood Pressure 112/51 L Blood Pressure Mean 71 Pulse Ox 98 Oxygen Delivery Method Room Air MDM MDM MDM Narrative Medical decision making narrative: HISTORY OF PRESENT ILLNESS: 27-year-old female presents with foot swelling and ankle swelling. States she broke herright 1st and 2nd toe a couple weeks ago. She further states she followed podiatry who provided with a splint. She states she has had increasing pain despite taking oral narcotics. Patient denies active cancer, being bedridden for greater than 3 days, denies unilateral leg swelling, denies any varicose veins, denies any calf tenderness, denies tenderness along deep venous system. Denies major surgery within 12 we eks, recent paralysis, previous DVT. REVIEW OF SYSTEMS: Pertinent positives: Toe pain Pertinent negatives: Numbness, weakness, loss sensation. PHYSICAL EXAM: Nursing triage notes reviewed, Vital signs reviewed Constitutional: please see mdm HENT: MMM, no trismus, no tonsillar exudates. Eyes: Pupils equal round and reactive to light, Extraocular muscles intact Neck: No stridor, no JVD, full neck ROM Lungs: Clear to auscultation, No wheezing or rales. No increased work of breathing, no conversational dyspnea, no accessory muscle use, no nasal flaring. No respiratory distress noted Heart: Regular rate and rhythm, No murmurs, No rubs and No gallops, 2+ distal pulses (radial, femoral, posterior tibial) in all extremities Extremities: No edema, compartments soft, extremities warm and well-perfused. TTP over first and second toes Neuro: Intact sensation L1-S1 dermatomal distributions. Intact 5/5 strength in hip flexion (T12-L3). Knee extension (L2-L4). Ankle dorsiflexion (L4-L5). Ankle plantar flexion (S1). Great toe extension (L5). 2+ patellar and Achilles DTRs. Skin: No rash or lesions noted, some ecchymosis noted over the first and second toes right foot. MEDICAL DECISION MAKING: Chief Complaint: Toe pain External records reviewed: No recent adVanced imaging of the involved extremity Factors affecting care: none MDM Narrative: Patient was hemodynamically stable, afebrile, nontoxic-appearing. Exam with warm well-perfused right lower extremity. No obvious deformities. Intact pulses. Compartments are soft. No stigmata of VTE. The Patients presentation is secondary to the already known fracture toe. Luis taping applied. Toradol given for pain control. Instructed on RICE therapy. Patient appropriate discharge home with close podiatry follow-up. The patient and/or family, caregivers express understanding. The patient and/or family, caregivers agrees with the plan. Shared decision making: I will have a discussion with the patient and or visitors regarding risk/benefits of further testing or admission. They will be made aware of of the risk/benefits inherent in this decision they will be given the opportunity to voice understanding. Total critical care time today provided was at least 0 minutes. This excludes separately billable procedures. Critical care time (if documented) is secondary to the patient having high probability of clinically significant/life threatening deterioration in the patient's condition which required my urgent intervention. Impression: 1. Toe pain 2. Toe fracture Dispo: Discharge home This note was generated with Simple Emotionation software. It may contain incorrect words, spelling, and punctuation that were not noted in review of the chart prior to signing. Discharge Plan Triage Chief Complaint: Lower Extremity Injury ED Provider: Diogenes Thurman Dx/Rx/DC Orders Clinical Impression: Fracture of toe Instructions: ED Fracture, Toe, Closed Prescriptions: No Action ibuprofen 800 MG tablet 800 mg PO Q8H PRN PRN (Reason: Pain Score 1-5) Qty: 60 1RF prednisone 20 mg tablet 40 mg PO DAILY 5 Days Qty: 10 0RF cefdinir 300 mg capsule 300 mg PO BID 7 Days Qty: 14 0RF Stand Alone Forms: ED Work / School Excuse Primary Care Provider: Care Physician,No Primary Referrals: Lenny Banda DPM [Med Staff - Active Staff] - Care Physician,No Primary [Primary Care Provider] - Activity Restrictions/Additional Instructions: Thank you for trusting us with your care today! Please take Tylenol (2 pills, 650 mg), ibuprofen (2 pills, 400 mg) every 6 hours as needed for pain and fever control. Please rest, ice, compress and elevate involved extremity as able. Please ice for 20 minutes on, 20 minutes off. Please submerge her foot in a bucket of ice water for at least 20 minutes for until complete anesthesia is achieved. Please return to the emergency department if your symptoms change or worsen. Specifically develop loss of sensation, loss of movement, coolness to touch, black discoloration. Please follow with your primary care physician for further outpatient evaluation and management. Disposition Disposition: Home, Self Care
[2023-06-20] MEDS: Ketorolac 15 MG/ML Vial IM (04:18)
[2023-06-20 04:21] VITALS: BP 118/78; PULSE 64; RESP 16; TEMP 36.4; O2SAT 99
== END 2023-06-20 04:31 | disposition home or self-care (01) ==
PROVIDERS: Emergency Provider Emergency Medicine; Visit Provider Emergency Medicine
DX: S92.401A Displaced unspecified fracture of right great toe, initial encounter for closed fracture (principal); F17.290 Nicotine dependence, other tobacco product, uncomplicated; S92.501A Displaced unspecified fracture of right lesser toe(s), initial encounter for closed fracture; X58.XXXA Exposure to other specified factors, initial encounter
CPT/HCPCS: 96372; 99282

== ENCOUNTER 2023-09-08 13:40 | Emergency (ER) | payer MEDICAID, SELFPAY ==
[2023-09-08 13:42] VITALS: BP 118/55; PULSE 77; RESP 18; TEMP 36.4; O2SAT 99; BMI 23.3
--- NOTE | 2023-09-08 14:04 | CT_ITS ---
STUDY: CT ABDOMEN AND PELVIS WITH CONTRAST REASON FOR EXAM: Female, 27 years old. abd pain -- IV PO Contrast RADIATION DOSAGE (If Supplied By Facility): CTDIvol = ( 14.08 ) mGy, DLP = ( 408.83 ) mGycm TECHNIQUE: Transaxial images were obtained from the dome of the diaphragm to the symphysis pubis without oral contrast. Oral and amp; IV Gastrografin and amp; 100mL Isovue-300 was administered. Sagittal and coronal images were reconstructed. Individualized dose optimization techniques were used for this CT. COMPARISON: None. FINDINGS: The visualized lung bases are unremarkable. The visualized portions of the heart are within normal limits. Normal liver. There is non-visualization of the gallbladder, which may be secondary to either contraction or a prior cholecystectomy. Normal spleen. Normal pancreas. Normal bilateral adrenal glands. Normal right kidney. Normal left kidney. Normal visualized stomach. Normal small intestine. Normal colon. The appendix is visualized and appears normal. Normal abdominal aorta. Normal inferior vena cava. Normal retroperitoneum. Normal urinary bladder. Normal visualized uterus. Normal abdominal wall. Normal osseous structures. CT/Abdomen/Pelvis WITH Contrast IMPRESSION: No definite acute or significant abnormality seen. Electronically Signed: Juan Ramon Valente MD at 16:10 EDT ,
--- NOTE | 2023-09-08 14:04 | EDS_ITS ---
HPI History of Present Illness Chief Complaint: Abd Pain Informant: patient Onset/Context/Timing Onset: Days Narrative Narrative: Patient presents with a 4 to 5-day history of abdominal pain. She states for 5 days ago she started getting intermittent sharp pain in the left lower quadrant and thought it was because of the started her menstrual cycle. Her menstrual cycle was normal and she has now completed her cycle, however still has intermittent pain. Over the past 2 days she is also had pain to the left chest and breast area. She does not feel short of breath and has not had cough. She has had nausea and diarrhea throughout the course of her current complaints, but this morning did vomit up bile with some blood associated. She denies any formal diagnosis of reflux, but states that she believes she does have this with burning in her throat. [facility] Medical History Physical exam, pre-employment Home Medications ?Medication ?Instructions ?Recorded ?Last Taken ?Type omeprazole 40 mg capsule,delayed 40 mg PO DAILY 4 weeks #28 caps 09/08/23 Unknown Rx release ondansetron 4 mg disintegrating 4 mg PO Q8H PRN PRN Nausea #10 tabs 09/08/23 Unknown Rx tablet Allergy/AdvReac Type Severity Reaction Status Date / Time No Known Allergies Allergy Verified 09/08/23 13:42 Family History Mother Hypertension Surgical History History of bilateral salpingectomy S/P cholecystectomy Social History (Updated 09/08/23 @ 14:24 by Jennifer Fleming) household members: family Smoking Status: Current every day smoker tobacco type: e-cigarettes alcohol intake: never substance use type: does not use caffeine: Yes what type of physical activity do you participate in: none seatbelt use: always do you feel safe at home: Yes additional social history: [employer] Contruction Patient is unemployed ROS ROS ED Constitutional Constitutional ED: Denies chills or fever(s) Eyes Eyes: Denies discharge from eye(s) ENT ENT ED: Denies discharge from eye(s), rhinorrhea or sore throat Cardiovascular Cardiovascular: Reports chest pain; Denies palpitations Respiratory/Chest Respiratory/Chest: Denies cough or dyspnea Gastrointestinal Gastrointestinal: Reports abdominal pain, diarrhea, nausea and vomiting Genitourinary Genitourinary ED: Denies dysuria Musculoskeletal Musculoskeletal: Denies back pain or extremity pain Integumentary Denies Abrasions or rash Neurologic Neurologic: Denies headache(s) or weakness Psychiatric Psychiatric: Denies anxiety or depression Allergic/Immunologic Allergic/Immunologic ED: Denies lip swelling or urticaria EXAM Physical Exam Const Vital Signs: 09/08/23 13:42 09/08/23 15:42 Temperature 97.6 F L Temperature Source Temporal Pulse Rate 77 62 Respiratory Rate 18 14 Blood Pressure 118/55 L 110/61 Blood Pressure Mean 76 77 Pulse Ox 99 99 Oxygen Delivery Method Room Air Positive well nourished and well developed General Appearance ED: well developed HEENT Reports moist mucous membranes Eyes EOMs intact bilaterally Chest Wall inspection of chest normal and palpation of chest normal Resp normal respiratory effort and clear to auscultation bilaterally Cardio regular rate and regular rhythm GI GI Narrative: Abdomen soft with minimal diffuse tenderness. No guarding or rebound. Active bowel sounds are noted. Extremity normal to inspection Neuro oriented x3 Motor Exam: strength 5/5 throughout Psych mental status grossly normal Skin no rashes or lesions noted MDM MDM MDM Narrative Medical decision making narrative: IV line established. Labwork obtained to evaluate for leukocytosis, anemia, and electrolyte derangement. Chest x-ray obtained to evaluate for acute lung pathology, cardiac size, or mediastinal abnormality. CT scan of the abdomen pelvis obtained to evaluate for acute bowel abnormality, free air. Patient given a dose of IV Protonix along with Zofran. History & Record Review Discussion w/independent historian: Patient Lab Data Attestation: I reviewed the patient's lab results. Labs: Laboratory Results - last 24 hr 09/08/23 09/08/23 14:15 14:26 WBC 7.6 RBC 4.58 Hgb 13.9 Hct 41.8 MCV 91.3 MCH 30.3 MCHC 33.3 RDW Std Deviation 41.3 RDW Coeff of Akshat 12.5 Plt Count 194 MPV 11.0 Immature Gran % (Auto) 0.400 Neut % (Auto) 75.2 H Lymph % (Auto) 19.7 [place] % (Auto) 3.7 Eos % (Auto) 0.7 Baso % (Auto) 0.3 Absolute Neuts (auto) 5.7 Absolute Lymphs (auto) 1.49 Nucleated RBC % 0 Sodium 139 Potassium 3.8 Chloride 111 H Carbon Dioxide 24.0 Anion Gap 4 L BUN 12 Creatinine 0.84 Estim Creat Clear Calc 87.64 Est GFR (MDRD) Af Amer 104 Est GFR (MDRD) Non-Af 86 BUN/Creatinine Ratio 14.2 Glucose 101 Calcium 8.7 Total Bilirubin 0.30 Direct Bilirubin 0.11 AST 13 L ALT 18 Alkaline Phosphatase 57 Total Protein 7.1 Albumin 3.7 Globulin 3.4 Lipase 23 Urine Color Yellow Urine Clarity Clear Urine pH 5.0 Ur Specific [place] 1.020 Urine Protein Negative Urine Glucose (UA) Normal Urine Ketones Negative Urine Occult Blood Negative Urine Nitrite Negative Urine Bilirubin Negative Urine Urobilinogen Normal Ur Leukocyte Esterase Negative Urine RBC 0 SEEN Urine WBC 0-5 SEEN Ur Squamous Epith Cells 10-25 SEEN Amorphous Sediment 1+ Urine Bacteria 1+ Urine Mucus RARE Radiography Diagnostic Testing: Clinical Impression(s) from Imaging Studies Abdomen/Pelvis CT 09/08/23 14:04 IMPRESSION: No definite acute or significant abnormality seen. Electronically Signed: Juan Ramon Valente MD at 16:10 EDT , Chest X-Ray 09/08/23 15:55 IMPRESSION: Normal x-ray examination of the chest. Electronically Signed: Juan Ramon Valente MD at 16:16 EDT , Treatment and Re-Evaluation :: CBC was normal white count 7.6 with a hemoglobin of 13.9. 75% neutrophils noted. Chemistry studies unremarkable. LFTs and lipase are normal. Urinalysis reveals no evidence of infection. CT scan of the abdomen pelvis reveals no acute abnormality. Chest x-ray per my interpretation, 2 views, shows no acute abnormalities with normal mediastinum and heart. Radiology interpretation reviewed and agrees. On repeat evaluation patient resting comfortably. I think she likely has some chronic reflux and gastritis. She is currently having some vomiting and diarrhea likely secondary to a viral gastroenteritis. I will treat her with Zofran as well as Prilosec. I advised her that at this time I see no obvious evidence of ulcers, however if she continues to have significant reflux symptoms or develops significant epigastric pain she may require EGD. She voices understanding and agreement. Return instructions provided. Discharge Plan Triage Chief Complaint: Abd Pain Other Complaint: Nausea/Vomiting ED Provider: Jyoti Hernandez Dx/Rx/DC Orders Clinical Impression: Gastroenteritis, Gastroesophageal reflux disease, Hematemesis Instructions: ED GERD (Adult), ED Gastritis (Adult), ED Gastroenteritis, Noninfectious Prescriptions: New ondansetron 4 mg tablet,disintegrating 4 mg PO Q8H PRN PRN (Reason: Nausea) Qty: 10 0RF omeprazole 40 mg capsule,delayed release(DR/EC) 40 mg PO DAILY 28 Days Qty: 28 0RF Primary Care Provider: Care Physician,No Primary Referrals: Mary Gamble MD [Med Staff - Certified Detention Deputy] - 10-14 Days if not better Care Physician,No Primary [Primary Care Provider] - Print Language: Tristanian Disposition Disposition: Home, Self Care
[2023-09-08] MEDS: Ondansetron 4 MG/2 ML Vial IV (14:20)
[2023-09-08] MEDS: Pantoprazole Sodium 40 MG in 0.9% Normal Saline (100mL MB+) 100 ML 330 MG IV (14:20)
[2023-09-08] MEDS: 0.9% Normal Saline (1000mL) 1,000 ML 150 ML IV (14:21)
[2023-09-08 14:31] LABS: Red Blood Cells-Urine 0 SEEN /hpf (0-5)
[2023-09-08 14:36] LABS: Color, Urine Yellow (Yellow); Glucose, Dipstick Normal (Normal); Ketone-Dipstick Negative (Negative); Leukocyte Esterase-Dipstick Negative /ul (Negative); Nitrite-Dipstick Negative (Negative); Occult Blood-Urine Negative /ul (Negative); Protein-Dipstick Negative (Negative); Urine Bilirubin Dipstick Negative (Negative); Urine Clarity Clear (Clear); Urine Urobilinogen Normal (Normal)
[2023-09-08 14:42] LABS: Absolute Lymphocyte Count 1.49 X10^3/uL (0.83-4.51); Absolute Neutrophil Count 5.7 X10^3/uL (2.0-7.7); Basophil# 0.02 X10^3/uL; Basophil% 0.3 % (0-1); Eosinophil# 0.05 X10^3/uL; Eosinophils% 0.7 % (0-5); Hematocrit 41.8 % (37-47); Hemoglobin 13.9 g/dL (12.0-15.0); Lymphocyte # 1.49 X10^3/ul (0.83-4.51); Lymphocyte % 19.7 % (19-41); Mean Corp Hgb Conc 33.3 g/dL (32-36); Mean Corpuscular Hgb 30.3 pg (27.0-32.0); Mean Corpuscular Volume 91.3 fL (81-99); Monocyte# 0.28 X10^3/uL; Monocyte% 3.7 % (0-10); NRBC Flagged by Analyzer 0 % (0-5); Neutrophil % 75.2 % (47-70); Platelet Count 194 K/mm3 (150-450); RBC Distribution Width CV 12.5 % (11.6-14.6); RBC Distribution Width SD 41.3 fl (35.1-43.9); Red Blood Count 4.58 M/mm3 (4.2-5.4); White Blood Count 7.6 K/mm3 (4.4-11.0)
[2023-09-08 14:43] LABS: AST(SGOT) 13 U/L (15-37); Alanine Aminotransfer ALT/SGPT 18 U/L (13-56); Albumin, Serum 3.7 g/dL (3.2-5.0); Alkaline Phosphatase 57 U/L (45-117); Anion Gap 4 (5-15); BUN 12 mg/dL (7-18); BUN/Creat Ratio 14.2 RATIO (10-20); Bilirubin, Direct 0.11 mg/dL (0.00-0.30); Calcium,Total 8.7 mg/dL (8.5-10.1); Chloride 111 mmol/L (98-107); Creatinine, Serum 0.84 mg/dL (0.55-1.02); EST Glomerular Filtration Rate 86 mL/min (>60); Est Glom Filt Rate - Afr Amer 104 mL/min (>60); Estimated Creatinine Clearance 87.64 ml/min; Globulin 3.4 g/dL (2.2-4.2); Glucose 101 mg/dL (74-106); Lipase 23 U/L (13-75); Potassium 3.8 mmol/L (3.5-5.1); Protein, Total 7.1 g/dL (6.4-8.2); Sodium Level 139 mmol/L (136-145)
[2023-09-08 14:51] LABS: Squamous Epithelial Cells - UA 10-25 SEEN /hpf (5-10)
[2023-09-08 14:52] LABS: Bacteria 1+ /hpf (None Seen); Mucous, Urine RARE /hpf (<or=2+)
[2023-09-08 14:53] LABS: Amorphous Sediment 1+
[2023-09-08 14:55] LABS: White Blood Cells 0-5 SEEN /hpf (0-5)
[2023-09-08 15:42] VITALS: BP 110/61; PULSE 62; RESP 14; O2SAT 99
--- NOTE | 2023-09-08 15:55 | RAD_ITS ---
STUDY: X-RAY CHEST REASON FOR EXAM: Female, 27 years old. pain TECHNIQUE: Frontal and lateral views of the chest. COMPARISON: None. FINDINGS: The lungs are clear and expanded. There is no demonstrated pleural abnormality. Normal size heart. Normal mediastinum and omid. Normal visualized pulmonary arteries. Normal visualized aortic arch and descending thoracic aorta. Normal visualized thoracic spine. Normal visualized ribs, clavicles, and shoulders. There is no demonstrated abnormality of the visualized soft tissue structures of the upper abdomen. RAD/Chest PA and Lateral IMPRESSION: Normal x-ray examination of the chest. Electronically Signed: Juan Ramon Valente MD at 16:16 EDT ,
[2023-09-08 16:46] VITALS: BP 118/48; PULSE 68; RESP 16; TEMP 36.8; O2SAT 100
== END 2023-09-08 16:46 | disposition home or self-care (01) ==
PROVIDERS: Emergency Provider Emergency Medicine; Visit Provider Emergency Medicine
DX: K52.9 Noninfective gastroenteritis and colitis, unspecified (principal); K21.9 Gastro-esophageal reflux disease without esophagitis; N64.4 Mastodynia; F17.290 Nicotine dependence, other tobacco product, uncomplicated; R07.9 Chest pain, unspecified
CPT/HCPCS: 71046; 74177; 80048; 80076; 81001; 83690; 85025; 96361; 96365; 96375; 99283; J7030; Q9967; J2405

== ENCOUNTER 2024-06-10 19:59 | Emergency (ER) | payer MEDICAID, SELFPAY ==
[2024-06-10 19:59] VITALS: BP 126/79; PULSE 90; RESP 18; TEMP 36.5; O2SAT 99
--- NOTE | 2024-06-10 20:09 | RAD_ITS ---
PROCEDURE: FOOT MIN 3 VIEWS REASON FOR EXAM: Foot pain TECHNIQUE: 3 view(s) of left foot COMPARISON: None. FINDINGS: LEFT FOOT: No visible fracture. No suspicious bone lesion. Normal alignment. Soft tissues are unremarkable. RAD/Foot min 3 Views IMPRESSION: No acute or significant osseous abnormality in the left foot Reading Location: [place]
--- NOTE | 2024-06-10 20:11 | EX.ED.DYSGE1 ---
HPI <PETE Hernandez - Last Filed: 06/10/24 20:39> History of Present Illness Chief Complaint: Lower Extremity Injury Narrative Narrative: Patient is a 28-year-old female with no significant medical history, presenting to the emergency department with complaints of left foot pain. Patient states she was walking to the kitchen when she rolled her left foot. She now has bruising to the lateral aspect of the left foot. Patient denies any other injury. PFSH <PETE Hernandez - Last Filed: 06/10/24 20:39> PFSH Medical History Physical exam, pre-employment Home Medications ?Medication ?Instructions ?Recorded ?Last Taken ?Type ibuprofen 600 mg tablet 600 mg PO Q6H PRN PRN pain #20 06/10/24 Unknown Rx TABLETS Allergy/AdvReac Type Severity Reaction Status Date / Time No Known Allergies Allergy Verified 06/10/24 20:00 Family History Mother Hypertension Surgical History History of bilateral salpingectomy S/P cholecystectomy Social History (Updated 09/08/23 @ 14:24 by Jennifer Fleming) household members: family Smoking Status: Current every day smoker tobacco type: e-cigarettes alcohol intake: never substance use type: does not use caffeine: Yes what type of physical activity do you participate in: none seatbelt use: always do you feel safe at home: Yes additional social history: [place] Contruction Patient is unemployed ROS <PETE Hernandez - Last Filed: 06/10/24 20:39> ROS ED ROS Narrative Constitutional: Negative for fever, chills, weight loss, weakness Eyes: Negative for vision loss, vision change, double vision ENT: Negative for any sore throat, ear pain, congestion Cardiovascular: Negative for any chest pain, tightness, palpitations Respiratory: Negative for any cough, sputum production, hemoptysis, dyspnea, dyspnea on exertion, orthopnea Gastrointestinal: Negative for any abdominal pain, nausea, vomiting, diarrhea, constipation, blood in stool, blood in vomit : Negative for any urinary frequency, dysuria, retention, blood in urine Muscle skeletal: Negative for any neck pain, back pain. Positive for left foot pain Neurological: Negative for any headache, syncope, dizziness Skin: Negative for any rashes, itching, abrasions, lacerations Psychiatric: Negative for any depression, anxiety, stress, suicidal ideation, homicidal ideation Hematologic: Negative for any excessive bruising, easy bleeding EXAM <PETE Hernandez - Last Filed: 06/10/24 20:39> Physical Exam Narrative Exam Narrative: Vital signs reviewed. Extremities: Patient has edema, ecchymosis along the fifth fourth and third metatarsals. Most the pain is to the middle fifth metatarsal. +2 radial pulse. No laceration noted. Neuro: Cranial nerves II through XII intact, no focal neurological deficits. Skin: Clean dry and intact with no rash, purpura, petechiae, vesicles or pustules. Backs/flank: No CVA tenderness, no midline spinal tenderness, no deformity. Psych: Normal mood and affect. No SI, HI or acute psychosis. Const Vital Signs: 06/10/24 19:59 Temperature 97.7 F L Temperature Source Oral Pulse Rate 90 Respiratory Rate 18 Blood Pressure 126/79 H Blood Pressure Mean 94 Pulse Ox 99 Oxygen Delivery Method Room Air <Tobi Crystal MD - Last Filed: 06/10/24 20:42> Physical Exam Const Vital Signs: 06/10/24 19:59 Temperature 97.7 F L Temperature Source Oral Pulse Rate 90 Respiratory Rate 18 Blood Pressure 126/79 H Blood Pressure Mean 94 Pulse Ox 99 Oxygen Delivery Method Room Air MDM <PETE Hernandez - Last Filed: 06/10/24 20:39> MDM Radiography Diagnostic Testing: Clinical Impression(s) from Imaging Studies Foot X-Ray 06/10/24 20:09 IMPRESSION: No acute or significant osseous abnormality in the left foot Reading Location: [place] Treatment and Re-Evaluation :: Differential diagnosis includes however is not limited to: [place] fracture, foot sprain, foot contusion, metatarsal fracture, lateral malleolar fracture Patient appears generally well, vital signs are stable, patient is nontoxic-appearing. Presenting to the emergency department with complaints of pain to the left foot, she states she might of twisted her foot. Patient does have some tenderness to the lateral dorsal aspect. X-rays of the left foot will be obtained. All radiologic examinations were read, reviewed by the emergency department attending. From these reads, a plan of care will be put in place. Patient's x-rays of the foot shows no acute significant osseous abnormality. Segment this finding, my findings on my physical examination, patient will be treated with a boot, crutches. Prescription for ibuprofen. Patient will follow-up with podiatry. Happy with the plan of care, all questions answered, patient stable for discharge. <Tobi Crystal MD - Last Filed: 06/10/24 20:42> MDM MDM Narrative Medical decision making narrative: Dr. Crystal: I have personally performed a face to face assessment of the patient and have reviewed the SERENA Note. I performed a substantive portion of the visit including all aspects of the following. My paiz findings include: History is patient walking at home, and either twisted left foot or stepped directly on the lateral aspect. Exam is GCS 15. ABCs intact. Inspection of the left foot does reveal diffuse tenderness to palpation at the base of fifth metatarsal with noted ecchymosis. Palpable dorsalis pedis pulse. Good capillary refill of toes. No noted malleoli or tenderness or Achilles tendon deficit. Medical Decision Making: Check x-rays. X-rays of the left foot obtained and interpreted by myself independently shows no evidence of an acute fracture. There is no obvious displaced fracture noted. Patient will be treated with crutches, not weightbearing on left lower extremity, and ice, elevation, and boot arthrosis. She will take [id number] medication such as ibuprofen. She was referred to podiatry as there is always the remote possibility that there is a very small nondisplaced fracture of the proximal fifth metatarsal. Return instructions to the emergency department were reviewed. Disposition is discharged in stable condition. Other additions or changes: [None] History & Record Review Discussion w/independent historian: Patient Radiography Diagnostic Testing: Clinical Impression(s) from Imaging Studies Foot X-Ray 06/10/24 20:09 IMPRESSION: No acute or significant osseous abnormality in the left foot Reading Location: [place] Discharge Plan Triage Chief Complaint: Lower Extremity Injury ED Midlevel Provider: Omid Miller ED Provider: Tobi Crystal Dx/Rx/DC Orders Clinical Impression: Foot sprain Instructions: ED Foot Sprain Prescriptions: New ibuprofen 600 mg tablet 600 mg PO Q6H PRN PRN (Reason: pain) Qty: 20 0RF Primary Care Provider: Care Physician,No Primary Referrals: Skinny Blas DPM [Med Staff - Active Staff] - Care Physician,No Primary [Primary Care Provider] - Activity Restrictions/Additional Instructions: Use the boot, crutches, advance weightbearing as tolerated. Follow-up with podiatry. Use the ibuprofen as needed. Ensure that you ice and elevate. Print Language: Monegasque Disposition Disposition: Home, Self Care
== END 2024-06-10 20:55 | disposition home or self-care (01) ==
PROVIDERS: Emergency Provider Emergency Medicine; Visit Provider Emergency Medicine
DX: S93.602A Unspecified sprain of left foot, initial encounter (principal); F17.290 Nicotine dependence, other tobacco product, uncomplicated; X50.1XXA Overexertion from prolonged static or awkward postures, initial encounter
CPT/HCPCS: 73630; 99284